=== PATIENT | female | born 1985 | race Caucasian/White ===

== ENCOUNTER 2016-12-03 08:28 | Emergency (ER) | payer OTHER ==
[2016-12-03] MEDS ORDERED: FAMOTIDINE 10 MG/ML 2ML VIAL ONE (09:17)
[2016-12-03] MEDS ORDERED: SODIUM CHLORIDE 0.9% 2,000 ML ONE (09:17)
[2016-12-03] MEDS ORDERED: ONDANSETRON 4 MG/2ML 2 ML VIAL ONE ×2 (09:17→10:25)
[2016-12-03 09:41] LABS: ABSOLUTE NEUTROPHIL COUNT 12.3 K/mm3 (1.8-7.7); BASO # 0.1 K/mm3 (0.0-0.2); BASO % 0.3 % (0.2-1.0); EOS # 0.1 (0.0-0.5); EOS % 0.7 % (0.9-2.9); HEMATOCRIT 38.7 % (37.0-47.0); HEMOGLOBIN 12.9 gm/l (12.0-16.0); IMM NEUT # 0.1 K/mm3 (0-0.2); IMM NEUT% 0.4 % (0-1); LYMPH # 1.1 (1.0-4.8); LYMPH % 7.6 % (15-45); MEAN CORPUSCULAR HGB CONC 33.3 g/dl (33.0-37.0); MEAN PLATELET VOLUME 9.1 fl (7.4-10.4); MONO # 0.9 (0.0-0.8); PLATELET COUNT 373 K/mm3 (130-400); RED CELL DISTRIBUTION WIDTH 12.3 % (11.5-14.5)
[2016-12-03 10:00] LABS: ALB/GLOB RATIO 1.4 (>1.0); ALBUMIN 4.4 gm/dL (3.5-5.7); CALCIUM 9.5 mg/dL (8.6-10.3)
[2016-12-04 14:06] LABS: HEP B CORE AB, IGM Non React (Non React); HEPATITIS B SURFACE AG Non React (Non React); HEPATITIS C ANTIBODY Non React (Non React)
== END 2016-12-03 11:39 | disposition home or self-care (01) ==
LOC: ED 08:28
DX: E86.0 Dehydration (principal); R94.5 Abnormal results of liver function studies; J45.909 Unspecified asthma, uncomplicated
CPT/HCPCS: 86705; 86709; 86803; 86340; 84703; 85025; 80053; 96375; 99283 ×2; 96376; 96374; 96361 ×2; J2405 ×2; J7030